=== PATIENT | female | born 1940 | race Caucasian/White ===

== ENCOUNTER 2017-02-23 13:53 | Emergency (ER) | payer OTHER ==
[~2017-02-23] VITALS: Ht 157.5 cm; Wt 53.1 kg
[~2017-02-23 13:53] MED LIST: ALLOPURINOL100 MG PO; AMITRIPTYLINE25 M1 PO; ANUSOL-HC25 MG/SUPP RC; DYA PO; ESTROPIPATE1.5 MG PO; LAC30L PO; LISINOPRIL20 MG PO; LYRICA50 M1 PO; NATURAL IRON65 MG PO; PRILOSEC40 MG PO; SERTRALINE100 M1 PO; SYNTHROID0.05 MG PO; VITAMIN C1000 M2 PO; VITAMIN-D1000 IU PO
[2017-02-23 17:05] VITALS: BP 106/56
== END 2017-02-23 17:05 | disposition home or self-care (01) ==
LOC: ED 13:53
DX: M25.561 Pain in right knee (principal); M25.551 Pain in right hip; I10 Essential (primary) hypertension; G89.29 Other chronic pain
CPT/HCPCS: J1885

== ENCOUNTER 2018-11-22 20:52 | Inpatient (IN) | payer OTHER ==
[~2018-11-22] VITALS: Ht 157.5 cm; Wt 53.1 kg
[2018-11-22 21:24] VITALS: Ht 157.5 cm; Wt 53.1 kg
--- NOTE | 2018-11-22 21:27 | NUR ---
PT BIBA FOR SOB, ANXIETY, CHEST PAIN. PT WAS IN [employer] WHEN SHE BEGAN TO FEEL SOB AND ANXIOUS. HER FAMILY WAS CALLED, AND THEY DECIDED TO CALL 911. PT C/O CHEST PAIN, LEFT INGUINAL PAIN, SOB, AND ANXIETY. PT HAS 20 G RIGHT AC IV. PT WAS BROUGHT IN ON 1 L NC. BS OF 198. PT HAS H/O HTN, DEPRESSION, HYPOTHYROIDISM, AND ANXIETY. PT STATES SHE HAS HAD AN UT IN THE PAST. PT CONNECTED TO [employer].
--- NOTE | 2018-11-22 21:43 | NUR ---
STEPHAN AT BEDSIDE FOR EKG.
--- NOTE | 2018-11-22 22:20 | NUR ---
PT OFF FLOOR FOR CT.
--- NOTE | 2018-11-22 22:30 | NUR ---
PT BACK ON FLOOR FROM CT.
--- NOTE | 2018-11-23 00:20 | NUR ---
PT REFUSED NG TUBE. DR. GALLO AT BEDSIDE TO EXPLAIN REASONING FOR NG TUBE. 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
[2018-11-23 00:34] LABS: PLATELET COUNT 233 x10^3mcL (130-400); RED CELL DISTRIBUTION WIDTH 13.6 % (11.5-14.5)
[2018-11-23 00:51] LABS: ALBUMIN 3.7 g/dL (3.4-5.0); ALKALINE PHOSPHATASE 367 U/L (46-116); ALT/SGPT 23 U/L (14-59); AST/SGOT 40 U/L (15-37); BILIRUBIN TOTAL 0.53 mg/dL (0.20-1.00); CALCIUM 9.6 mg/dL (8.5-10.1); CARBON DIOXIDE 21.3 mmol/L (21-32); CHLORIDE SERUM 104 mmol/L (98-107); GLUCOSE SERUM 148 mg/dL (74-106); LIPASE 295 IU/L (73-393); SODIUM SERUM 140 mmol/L (136-145); TOTAL PROTEIN, SERUM 6.9 g/dL (6.4-8.2)
[2018-11-23 00:58] LABS: POTASSIUM SERUM 2.8 mmol/L (3.5-5.1)
[2018-11-23 01:15] LABS: BAND NEUTROPHIL 8 % (0-10); MONOCYTE 7 % (0-7); SEGMENTED NEUTROPHILS 81 % (37-75)
[2018-11-23 01:16] LABS: PLATELET MORPHOLOGY PLATELETS NORMAL; rbc morphology (normal/abnorm) NORMAL (NORMAL)
--- NOTE | 2018-11-23 01:50 | NUR ---
REPORT GIVEN TO ANABELLE SOLIS. ALL QUESTIONS AND CONCERNS ANSWERED.
--- NOTE | 2018-11-23 02:15 | NUR ---
PT IV INFILTRATED, STARTED NEW ONE TO LEFT AC 22G.
--- NOTE | 2018-11-23 02:50 | NUR ---
PT TRANSFERED TO TELE WITH Ceci HOPKINS. NO DISTRESS NOTED. 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
[2018-11-23 03:24] VITALS: BP 114/69
--- NOTE | 2018-11-23 03:43 | NUR ---
PT RECIEVED FROM THE ED VIA BLAKEERDUC ACCOMPANIED BY THE NURSE. PT IS ALERT AND ORIENTED X4, CALM AND COOPERATIVE WITH CARE, NO JVD NOTED, ABD IS FIRM AND TENDER TO PALPATION ON THE LLQ, PULSES ARE PALPABLE, SKIN IS INTACT, RESPIRATION IS CTAB, NO ACUTE RESP DISTRESS NOTED, PT STATES PAIN IN LEFT LOWER QUADRANT OF ABDOMEN, PT IS AMBULATORY WITH ASSISTANCE BUT STATES SHE CANT WALK AT THIS TIME. PT HAS LEFT AC [address], INFUSING K-GRAEME AT THIS TIME. SAFETY AND COMFORT MEASURES IN PLACE, CALL LIGHT WITHIN REACH, WILL CONTINUE TO MONITOR AT THIS TIME.
--- NOTE | 2018-11-23 04:11 | NUR ---
PT IV IS LEAKING AT THIS TIME. WILL REMOVE AND START NEW IV. PT IS CURRENTLY IN THE RESTROOM. NO ACUTE DISTRESS NTOED. SAFETY AND COMFORT MEASURES MAINTAINED, BED IN LWOEST POSITION, CALL LIGHT WITHIN REACH. WILL CONTINUE TO MONITOR.
--- NOTE | 2018-11-23 04:15 | NUR ---
LAB CALLED WITH LACTIC ACID RESULTS. LACTIC ACID IS 2.3.
--- NOTE | 2018-11-23 04:36 | NUR ---
NEW IV PLACED 22 GAUGE IN THE LEFT FOREARM. IV IS PATENT AND INTACT INFUSING D5 NS AT 100 ML/HR.
--- NOTE | 2018-11-23 05:23 | NUR ---
PT IS AWAKE AND ALERT AT THIS TIME. PT COMPLAINS OF CHEST PAIN, PT STATES PAIN FEELS SHARP AND IT RADIATES TO THE LOWER BACK. PT MEDICATED WITH PRN MORPHINE ( SEE MAR). PT STATES PAIN IN THE LOWER LEFT QUADRANT IN THE ABDOMEN WELL. PT HAS NOT SLEPT DURING THE SHIFT, PT HAS BEEN CALM AND COOPERATIVE WITH CARE, ALERT AND ORIENTED X4, SAFETY AND COMFORT MEASURES MAINTAINED, BED IN LOWEST POSITION, CALL LIGHT WITHIN REACH, WILL ENDORSE CONTINUITY OF CARE TO THE ONCOMING RN.
[2018-11-23 06:45] VITALS: BP 115/66
--- NOTE | 2018-11-23 08:00 | NUR ---
ALERT AND ORIENTED. BREATHING FREELY ON RA. DENIES PAIN AT THIS TIME. PT REPORTED THAT SHE HAD VERYLARGE BM FOLLOWED BY WATERY STOOL THIS AM DURING NOC SHIFT. TELE # 9 ST HR [id number]. MINIMAL ASSIST WITH ADL'S. NPO EXCEPT MEDS. CALL LIGHT WITH IN REACH.
[2018-11-23 08:50] VITALS: BP 127/64
[2018-11-23 11:28] LABS: CALCIUM 9.1 mg/dL (8.5-10.1); CARBON DIOXIDE 22.6 mmol/L (21-32); CHLORIDE SERUM 106 mmol/L (98-107); CREATININE SERUM 1.9 mg/dL (0.6-1.0); GLUCOSE SERUM 149 mg/dL (74-106); POTASSIUM SERUM 3.7 mmol/L (3.5-5.1); SODIUM SERUM 139 mmol/L (136-145)
[2018-11-23 13:06] VITALS: BP 103/58
[2018-11-23 14:06] LABS: microscopic required? NO
[2018-11-23 14:21] LABS: UA SPECIFIC GRAVITY 1.025 (1.005-1.035); urine erythrocyte NEGATIVE (NEGATIVE)
[2018-11-23 14:24] LABS: AMPHETAMINE QUAL UR NONE DETECTED (See below)
[2018-11-23 16:45] VITALS: BP 96/54
--- NOTE | 2018-11-23 18:41 | NUR ---
ALERT AND ORIENTED. GENERALIZED WEAKNESS. CLEAR LIQUID DINNER. TAKING LAXATIVES. MULTIPLE WATERY STOOLS. USING BSC. WINSTON DRAINING YELLOW URINE.KUB RESULTS IN PLEASE SEE REPORT. STARTED ON LEVAQUIN AND FLAGYL TODAY. SEEN BY DR.U. WAGNER TODAY. CALL LIGHT WITHIN REACH.
[2018-11-23] MEDS ORDERED: ZOLOFT100 MG PO (19:14)
--- NOTE | 2018-11-23 19:30 | NUR ---
PT SEEN, RESTING IN BED, ALERT AND ORIENTED, DENIES HEADACHE OR DIZZINESS, BREATHING EVEN AND UNLABORED, NO SOB, LUNG SOUNDS CLEAR, ON ROOM AIR WITH NO RESP DISTRESS NOTED, ON TELE#9 ST, DENIES CHEST PAIN, SL TO LFA, PULSES PALPABLE, NO EDEMA NOTED, GENERALIZED WEAKNESS, BSC WITH ASSIST, ABD SOFT AND FLAT WITH HYPERACTIVE BS, WATERY BM DUE TO ON LAXATIVE PO MEDS, VOIDING FREELY, NO DISTRESS NOTED, WILL KEEP TO MONITOR.
[2018-11-23 21:22] VITALS: BP 100/52
[2018-11-24 05:07] VITALS: BP 103/62
--- NOTE | 2018-11-24 05:53 | NUR ---
PT AWAKE AND RESTING IN BED, SLEPT ON AND OFF WHOLE NIGHT, ONLY HAD ONE SMALL WATERY BM DURING THE SHIFT, TOLERATED WELL WITH CLEAR LIQUID DIET, NO N&V NOTED, C/O OF ABD CRAMPS AT TIMES, WINSTON CARE GIVEN, GOWN CHANGED, NO DISTRESS NOTED, WILL KEEP TO MONITOR.
[2018-11-24 06:14] LABS: CALCIUM 9.3 mg/dL (8.5-10.1); CARBON DIOXIDE 25.2 mmol/L (21-32); CHLORIDE SERUM 108 mmol/L (98-107); CREATININE SERUM 1.2 mg/dL (0.6-1.0); GLUCOSE SERUM 101 mg/dL (74-106); POTASSIUM SERUM 3.4 mmol/L (3.5-5.1); SODIUM SERUM 141 mmol/L (136-145)
[2018-11-24 06:58] LABS: BASOPHIL % 0.3 % (0-2); PLATELET COUNT 183 x10^3mcL (130-400)
--- NOTE | 2018-11-24 07:30 | NUR ---
BEDSIDE HADNOFF REPORT DONE WITH RAVI-RN, ALL QUESTIONS ANSWERED AND CONCERNS ADDRESSED.
--- NOTE | 2018-11-24 07:30 | NUR ---
ALERT AND ORIENTED. BREATHING FREELY ON RA. TELE # 9 NSR HR 83. DENIES ANY PAIN. ABD FLAT WITH ACTIVE BOWEL SOUNDS. GETS UP TO BSC. TOLERATES CLEAR LIQUID DIET. SL TO LFA. CALL LIGHT WITHIN REACH.
[2018-11-24 08:41] VITALS: BP 96/52
[2018-11-24 13:21] VITALS: BP 105/47
[2018-11-24 17:30] VITALS: BP 95/50
--- NOTE | 2018-11-24 17:42 | NUR ---
PROVIDED WINSTON CARE.
--- NOTE | 2018-11-24 18:48 | NUR ---
NO CHANGES. ON GOING LAXATIVES. USES BEDSIDE COMMODE, WATERY STOOLS BROWN/GREENISH GRAINY. CLEAR LIQUID DIET. NO C/O PAIN. ALERT AND ORIENTED. CALL LIGHT WITHIN REACH.
--- NOTE | 2018-11-24 19:42 | NUR ---
PT SEEN, RESTING IN BED, ALERT AND ORIENTED, DENIES HEADACHE OR DIZZINESS, BREATHING EVEN AND UNLABORED, NO SOB, LUNG SOUNDS CLEAR, ON ROOM AIR WITH NO RESP DISTRESS NOTED, ON TELE#9 ST, DENIES CHEST PAIN, SL TO LFA, PULSES PALPABLE, NO EDEMA NOTED, GENERALIZED WEAKNESS, BSC WITH ASSIST, ABD SOFT AND FLAT WITH HYPERACTIVE BS, WATERY BM DUE TO ON LAXATIVE PO MEDS, WINSTON VIA GRAVITY DRAINING YELLOW URINE, NO DISTRESS NOTED, WILL KEEP TO MONITOR.
[2018-11-24 20:58] VITALS: BP 110/65
--- NOTE | 2018-11-25 01:28 | NUR ---
PT ASLEEP BUT EASILY AROUSABLE, BREATHING EVEN AND UNLABORED ON ROOM AIR WITH NO RESP DISTRESS NOTED, IVF INFUSING WELL WITH FLAGYL AT THIS TIME, NO DISTRESS NOTED, WILL KEEP TO MONITOR.
[2018-11-25 04:38] VITALS: BP 110/59
--- NOTE | 2018-11-25 06:11 | NUR ---
PT AWAKE AND RESTING IN BED, SLEPT ON AND OFF WHOLE NIGHT, PT HAD ONE WATERY STOOL DURING THE SHIFT, NO N&V NOTED, CLEAR LIQUID DIET TOLERATED WELL, SL TO LFA, BREATHING EVEN AND UNLABORED ON ROOM AIR WITH NO RESP DISTRESS NOTED, WILL KEEP TO MONITOR.
[2018-11-25 06:42] LABS: CARBON DIOXIDE 22.3 mmol/L (21-32); CHLORIDE SERUM 110 mmol/L (98-107); GLUCOSE SERUM 104 mg/dL (74-106); POTASSIUM SERUM 3.8 mmol/L (3.5-5.1); SODIUM SERUM 142 mmol/L (136-145)
[2018-11-25 06:44] LABS: BASOPHIL % 0.5 % (0-2); PLATELET COUNT 169 x10^3mcL (130-400); RED CELL DISTRIBUTION WIDTH 14.5 % (11.5-14.5)
--- NOTE | 2018-11-25 07:14 | NUR ---
BEDSIDE HANDOFF REPORT GIVEN TO RAVI-RN, ALL QUESTIONS ANSWERED AND CONCERNS ADDRESSED.
--- NOTE | 2018-11-25 07:45 | NUR ---
ALERT AND ORIENTED. BREATHING FREELY ON RA. DENIES ANY PAIN. TELE # 9 ST. USES BEDSIDE COMMODE OR BR. CONTINUES ON LAXATIVES RESULTING IN WATERY BROWNISH / GREENISH GRAINY STOOL. WINSTON DRAINING RIANA URINE.SL TO LEFT FA. CALL LIGHT WITHININ REACH.
[2018-11-25 08:57] VITALS: BP 107/62
--- NOTE | 2018-11-25 11:47 | NUR ---
Initial Nutrition Assessment- Dx: SBO PMHx: hx cardiac disorders, hx CHF, hx arrhythmia, hx HTN PSHx: None noted per ED MD Notes Labs: (11/25) Na 142, K 3.8, Glu 104, BUN 18, Cr 1.0, H/H 12.8/36 Meds: ambien, Ativan, cephulac, D5%, dulcolax, ferrous sulfate, flagyl, klor con, levaquin, magnesium sulfate, miralax, morphine sulfate, norco, Phenergan, potassium chl, Prilosec, reglan, senokot, sodium chl, synthroid, TUMS, Tylenol, vit C, vit D, Zestril, Zoloft Diet: CL (as of 11/23) PO Intakes: Variable intakes (11/24) L: 100%, D: 20% Ht: 157.48 cm/ 62 inches/ 5'2" Wt: 53.009 kg/ 117 pounds BMI: 21.4 kg/m2, underweight for age IBW: 110 pounds/50 kg %IBW: 106% UBW: 112# Age: 78 Food Allergies: No Known Food Allergies Skin: [place] 17 Edema: None noted GI: Last BM 11/25/18 x 2 Pt admitted with dx: SBO with transition point, SIRS, hypokalemia, renal insufficiency, constipation, hiatal hernia, diverticulosis, hypertension. RDN visited with Pt. Pt awake in bed, in good spirits, daughters (2) at bedside. Pt states that she had some breakfast, but did not finish it all. Pt reports having been on an mostly fruit/vegetable diet (almost but not quite vegan per Pt) from February to April 2018 as a recommendation of her doctor for kidney issues. Pt stopped doing that diet because she lost so much weight that she hardly recognized herself in the mirror. Ever since doing that diet, she notes a decrease in appetite and now reports a poor appetite. She has since started re-introducing other foods back into her diet. She now includes cornbread, milk, some meats (likes pork), [employer] spaghetti, sandwiches. Pt requests and accepts cardiac diet edu for her hx of CHF and HTN. Nursing Trigger - Poor PO > 3 days Problem with: N: no V: no D: no C: no Problems with: Chewing: no Swallowing: no Current appetite: poor Recent wt changes: -15% x 1 mo Vitamin/Supplement: Bioflex Special Diet at Home: Regular Physical activity:Walking Education: Pt accepted cardiac diet edu along with handouts. Daughters present at time of education. All verbalized understanding. Estimated Nutritional Needs Based on actual body weight of 53 kg. Energy: 1390-7904 kcal/d (25-30 kcal/kg for older adult maintenance) Protein: 53-64 gm/d (1-1.2 gm/kg for older adult maintenance) Fluid: 5480-5807 mL/d (1 mL/kcal) or per MD. Nutrition Diagnosis 1. Inadequate protein/energy intakes related to SBO as evidenced by Pt currently on clear liquid diet meeting < 75% estimated needs via PO diet. Intervention/RDN Recommendation(s): 1. Continue on clear liquid diet as tolerated. 2. If/when medically appropriate, consider advancing diet to full liquid and then to cardiac diet as tolerated. Monitor/Evaluate Goal: Intake via PO intakes to meet at least 75% of estimated needs with acceptable tolerance within 2-3 days. Monitor: PO intakes and/or nutrition support tolerance, Labs, GI function, Skin integrity, Weights. F/U in 2-3 days as high risk (11/27-)
[2018-11-25 13:10] VITALS: BP 127/74
[2018-11-25 15:51] VITALS: BP 123/69
--- NOTE | 2018-11-25 19:27 | NUR ---
RESTING COMFORTABLY. BREATHING FREELY ON RA. NPO FOR SMALL BOWEL FOLLOW THROUGH. SMALL AMT CLEAR LIQUID DIET FOR LUNCH NOTHING SINCE. NO C/O PAIN. CONTINUES TO HAVE WATERY BROWN/GREENISH GRAINY STOOLS. BRP AND BSC. RECEIVES FLAGYL, LEVAQUIN, AND REGLAN IV. SL TO RT FA. VSS. CALL LIGHT WITHIN REACH.
--- NOTE | 2018-11-25 19:46 | NUR ---
PT SEEN, RESTING IN BED, ALERT AND ORIENTED, DENIES HEADACHE OR DIZZINESS, BREATHING EVEN AND UNLABORED, NO SOB, LUNG SOUNDS CLEAR, ON ROOM AIR WITH NO RESP DISTRESS NOTED, ON TELE#9 ST, DENIES CHEST PAIN, SL TO RFA, PULSES PALPABLE, NO EDEMA NOTED, GENERALIZED WEAKNESS, BSC WITH ASSIST, ABD SOFT AND FLAT WITH HYPERACTIVE BS, WATERY BM DUE TO ON LAXATIVE PO MEDS, NPO AT THIS TIME FOR SBFT, WINSTON VIA GRAVITY DRAINING RIANA COLOR URINE, NO DISTRESS NOTED, WILL KEEP TO MONITOR.
--- NOTE | 2018-11-25 20:20 | NUR ---
SBFT STATING AT THIS TIME.
[2018-11-25 22:09] VITALS: BP 126/73
[2018-11-26 05:52] VITALS: BP 117/77
--- NOTE | 2018-11-26 05:53 | NUR ---
PT AWAKE AND RESTING IN BED, SLEPT ON AND OFF WHOLE NIGHT, TOTAL HAD 3 WATERY STOOL DURING THE SHIFT, SL TO RFA, VSS, ON TELE#9 NSR, CONDITION NO CHANGE, REFUSED DULCOLAX SUPP THIS MORNING, NO N&V NOTED, NO DISTRESS NOTED, WILL KEEP TO MONITOR.
[2018-11-26 07:20] LABS: CALCIUM 8.8 mg/dL (8.5-10.1); CARBON DIOXIDE 20.7 mmol/L (21-32); CHLORIDE SERUM 111 mmol/L (98-107); CREATININE SERUM 0.9 mg/dL (0.6-1.0); GLUCOSE SERUM 98 mg/dL (74-106); POTASSIUM SERUM 3.4 mmol/L (3.5-5.1); SODIUM SERUM 143 mmol/L (136-145)
--- NOTE | 2018-11-26 07:24 | NUR ---
BEDSIDE HANDOFF REPORT DONE WITH BEVERLEY-RN, ALL QUESTIONS ANSWERED AND CONCERNS ADDRESSED.
--- NOTE | 2018-11-26 07:25 | NUR ---
PT RECEIVED A/O X4, ABLE TO MAKE NEEDS KNOWN. TELE #9, DENIES ANY CP/PRESSURE. PULSES PALPABLE, NO EDEMA PRESENT. LUNG SOUNDS CTA, BREATHING IS EVEN AND UNLABORED, NO RESP DISTRESS NOTED. ABD SOFT AND NONDISTENDED, BOWEL TONES HYPERACTIVE X4 QUAD, DENIES N/V. WINSTON CATH IN PLACE DRAINING TO GRAVITY, RIANA COLORED URINE NOTED. GENERALIZED WEAKNESS, AMBULATORY. SKIN IS INTACT. PT DENIES ANY PAIN AT THIS TIME. SL TO RFA, PATENT AND INTACT, SITE WNL. BED IN LOWEST SETTING, SIDE RAILS UP X2, CALL LIGHT WITHIN REACH. WILL CONT TO MONITOR.
[2018-11-26 07:41] LABS: BASOPHIL % 0.5 % (0-2); PLATELET COUNT 193 x10^3mcL (130-400); RED CELL DISTRIBUTION WIDTH 13.7 % (11.5-14.5)
[2018-11-26 08:03] VITALS: BP 119/80
--- NOTE | 2018-11-26 09:28 | NUR ---
DR MARSHALL AT BEDSIDE. PER DR MARSHALL, PT WILL BE ABLE TO BE DC'd HOME TODAY.
--- NOTE | 2018-11-26 09:58 | NUR ---
DR WAGNER AT BEDSIDE DISCUSSING POC. ALL QUESTIONS AND CONCERNS ADDRESSED.
--- NOTE | 2018-11-26 11:09 | NUR ---
BEDSIDE REPORT GIVEN TO LIZETTE AHN. ALL QUESTIONS AND CONCERNS ADDRESSED.
--- NOTE | 2018-11-26 11:29 | NUR ---
RECEIVED PT FROM BEVERLEY AHN. PT IS A/O X4, VERBAL RESPONSIVE, DENY ANY RESPIRATORY DISTRESS, DENY ANY PAIN OR DISCOMFORT, INSTRUCT THE PT HAS DISCHARGE ORDER, PT AWARE DISCHARGE PLAN. WILL CONTINUE TO MONITOR THE PT.
[2018-11-26 11:50] VITALS: BP 136/73
[2018-11-26 12:32] VITALS: BP 125/60
--- NOTE | 2018-11-26 12:58 | NUR ---
GIVE THE DISCHARGE INSTRUCTION TO THE PT. PT VERBAL STATE UNDERSTAND. SIGN ALL THE DISCHARGE PAPER AND D/C THE WINSTON CATH. WAITING FOR THE DAUGHTER TO COME GERIATRIC ASSISTANT THE PT.
== END 2018-11-26 15:30 | disposition home or self-care (01) | DRG 388 ==
LOC: ED 20:52 → DU 11-23 01:10
PROVIDERS: Emergency Medicine; Internal Medicine Gastroenterology; ADMIT Internal Medicine
DX: K56.609 Unspecified intestinal obstruction, unspecified as to partial versus complete obstruction (principal); N17.0 Acute kidney failure with tubular necrosis; E87.2 Acidosis; E87.1 Hypo-osmolality and hyponatremia; R65.10 Systemic inflammatory response syndrome (SIRS) of non-infectious origin without acute organ dysfunction; I13.0 Hypertensive heart and chronic kidney disease with heart failure and stage 1 through stage 4 chronic kidney disease, or unspecified chronic kidney disease; I50.9 Heart failure, unspecified; I25.10 Atherosclerotic heart disease of native coronary artery without angina pectoris; N18.2 Chronic kidney disease, stage 2 (mild); E87.6 Hypokalemia; K44.9 Diaphragmatic hernia without obstruction or gangrene; K59.09 Other constipation; K56.7 Ileus, unspecified; M41.9 Scoliosis, unspecified; F17.211 Nicotine dependence, cigarettes, in remission; I25.2 Old myocardial infarction; Z87.442 Personal history of urinary calculi
CPT/HCPCS: 83880; J1956; J2270; J2405; J2765; J3475; J3480; J3490; J7030; J7040; J7042; Q0092; Q9967